=== PATIENT | female | born 1985 | race Caucasian/White ===

== ENCOUNTER 2020-11-29 18:47 | Emergency (ER) | payer OTHER ==
[~2020-11-29] VITALS: Ht 160 cm; Wt 56.7 kg
== END 2020-11-29 20:00 | disposition home or self-care (01) ==
LOC: ER 19:59
DX: L02.31 Cutaneous abscess of buttock (principal); L03.317 Cellulitis of buttock; F17.200 Nicotine dependence, unspecified, uncomplicated
CPT/HCPCS: 99282